=== PATIENT | male | born 1970 | race Caucasian/White ===

== ENCOUNTER 2021-03-29 22:35 | Observation (INO) | payer MEDICAID, OTHER ==
[2021-03-29] MEDS ORDERED: Sodium Chloride 0.9% 10 ML Syringe FLUSH PRN (23:26)
[2021-03-29] MEDS: Sodium Chloride 0.9% 2,000 ML IV ONE (23:29)
--- NOTE | 2021-03-29 23:32 | EDM.PDOC ---
ED HPI GENERAL MEDICAL PROBLEM - General Stated Complaint: WEAKNESS, COVID POSITIVE Time Seen by Provider: 03/29/21 23:19 Source of Information: Reports: Patient History Limitations: Reports: No Limitations - History of Present Illness INITIAL COMMENTS - FREE TEXT/NARRATIVE: Patient presents emergency room by private vehicle for chief complaint of weakness. The patient has had COVID-19 diagnosed on SundayMar.25, cold symptoms started on March 17. This is day 12 for him. He has not been able to eat or drink much due to his weakness and fatigue and lack of appetite. The patient feels short of breath and if he walks down the hallway, he becomes very weak and short of breath. He relates his shortness of breath due to his weakness. Denies any chest pain or chest tightness. He has a cough on and off but is nonproductive. He has no vomiting or diarrhea or any fever or chills. Patient is 50 healthy otherwise does not take any medications, no known medical problems ,does not smoke ,or drink alcohol ,has had no hx of surgeries. - Related Data Allergies Allergy/AdvReac Type Severity Reaction Status Date / Time No Known Allergies Allergy Verified 03/29/21 23:24 Home Meds: Home Meds . [No Known Home Meds] 03/29/21 [History] ED ROS GENERAL - Review of Systems Review Of Systems: See Below Constitutional: Reports: Weakness, Fatigue. Denies: Fever, Chills HEENT: Reports: No Symptoms Respiratory: Reports: Shortness of Breath, Cough. Denies: Pleuritic Chest Pain Cardiovascular: Reports: No Symptoms Endocrine: Reports: Fatigue GI/Abdominal: Reports: No Symptoms. Denies: Abdominal Pain, Nausea, Vomiting Musculoskeletal: Reports: No Symptoms Skin: Reports: No Symptoms Neurological: Reports: No Symptoms. Denies: Headache ED EXAM, GENERAL - Physical Exam Exam: See Below Exam Limited By: No Limitations General Appearance: Alert, Moderate Distress Eye Exam: Bilateral Eye: EOMI Ear Exam: Bilateral Ear: TM normal Nose: Normal Inspection Throat/Mouth: Normal Inspection, Normal Oropharynx, Other (dry lips, dry mucus membranes) Head: Atraumatic Neck: Normal Inspection, Supple, Non-Tender Respiratory/Chest: Chest Non-Tender, Crackles, Other (increased work of breathing, fine crackles in the bases). No: Rales, Rhonchi, Wheezing, Stridor, Retractions Cardiovascular: Normal Peripheral Pulses, Regular Rate, Rhythm, No Murmur Peripheral Pulses: 2+: Radial (L), Radial (R) GI/Abdominal: Normal Bowel Sounds, Soft, Non-Tender Back Exam: Normal Inspection, Full Range of Motion Extremities: Normal Inspection, Normal Range of Motion, Non-Tender, No Pedal Edema Neurological: Alert, Oriented, Normal Cognition Psychiatric: Anxious Skin Exam: Warm, Dry, Intact #1 Interpretation EKG Date: 03/29/21 Time: 23:38 Rhythm: NSR [place]: Normal P-Wave: Present QRS: Normal ST-T: Normal QT: Normal Course - Vital Signs Last Recorded V/S: Last Vital Signs Temp 98.9 F 03/30/21 07:04 Pulse 98 03/30/21 07:04 Resp 28 H 03/30/21 07:04 BP 92/55 L 03/30/21 07:04 Pulse Ox 95 03/30/21 07:04 - Orders/Labs/Meds Orders: Active Orders 24 hr Category Date Time Status Chest 1V Frontal [CR] Stat Exams 03/29/21 23:19 Ordered Chest PE [Ang Chest] [CT] Stat Exams 03/30/21 00:37 Ordered Sodium Chloride 0.9% [Normal Saline] 100 ml Med 03/30/21 01:00 Active IV ASDIRECTED Sodium Chloride 0.9% [Saline Flush] Med 03/29/21 23:26 Active 10 ml FLUSH Q8HR PRN Saline Lock Insert [OM.PC] Routine Oth 03/29/21 23:26 Ordered EKG 12 Lead [EK] Stat Ther 03/29/21 23:26 Ordered Medication Orders Sodium Chloride (Normal Saline) 100 mls @ 200 mls/hr IV ASDIRECTED [facility] Last Admin: 03/30/21 01:20 Dose: 200 mls/hr Documented by: CANDELARIA Sodium Chloride (Sodium Chloride 0.9% 10 Ml Syringe) 10 ml FLUSH Q8HR PRN PRN Reason: keep vein open Labs: Laboratory Tests 03/29/21 03/29/21 03/29/21 Range/Units 23:10 23:10 23:10 WBC 3.90 L (5.00-10.00) 10^3/uL RBC 6.16 H (4.50-6.00) 10^6/uL Hgb 16.4 (13.0-17.0) g/dL Hct 48.3 (40.0-52.0) % MCV 78.4 L (82.0-92.0) fL MCH 26.6 L (27.0-31.0) pg MCHC 34.0 (32.0-36.0) g/dL RDW 13.8 (11.5-14.5) % Plt Count 142 L (150-400) 10^3/uL MPV 11.8 H (7.4-10.4) fL Immature Gran % (Auto) 0.0 (0.0-5.0) % Neut % (Auto) 76.1 H (50.0-70.0) % Lymph % (Auto) 17.4 L (20.0-40.0) % [place] % (Auto) 6.2 (2.0-8.0) % Eos % (Auto) 0.0 L (1.0-3.0) % Baso % (Auto) 0.3 (0.0-1.0) % Neut # (Auto) 2.97 (2.50-7.00) 10^3/uL Lymph # (Auto) 0.68 L (1.00-4.00) 10^3/uL [place] # (Auto) 0.24 (0.10-0.80) 10^3/uL Eos # (Auto) 0.00 L (0.10-0.30) 10^3/uL Baso # (Auto) 0.01 (0.00-0.10) 10^3/uL Immature Gran # (Auto) 0.00 (0.00-0.50) 10^3/uL D-Dimer, Quantitative 902 H (<400) ng/mL Sodium 135 L (136-145) mmol/L Potassium 3.9 (3.5-5.1) mmol/L Chloride 99 (98-107) mmol/L Carbon Dioxide 24.6 (21.0-32.0) mmol/L Anion Gap 15.3 H (5-15) mmol/L BUN 25 H (7-18) mg/dL Creatinine 1.26 H (0.51-1.17) mg/dL Est Cr Clr Drug Dosing 73.87 mL/min Estimated GFR (MDRD) > 60 mL/min Glucose 99 (70-140) mg/dL Lactic Acid (0.4-2.0) mmol/L Calcium 8.3 L (8.7-10.3) mg/dL Total Bilirubin 0.9 (0.2-1.0) mg/dL AST 65 H (15-37) U/L ALT 69 H (14-63) U/L Alkaline Phosphatase 54 (46-116) U/L Troponin I High Sens 5.200 (0-76.000) pg/mL C-Reactive Protein 8.9 H (0.0-0.9) mg/dL Total Protein 7.6 (6.4-8.2) g/dL Albumin 3.28 L (3.40-5.00) g/dL 03/29/21 Range/Units 23:51 WBC (5.00-10.00) 10^3/uL RBC (4.50-6.00) 10^6/uL Hgb (13.0-17.0) g/dL Hct (40.0-52.0) % MCV (82.0-92.0) fL MCH (27.0-31.0) pg MCHC (32.0-36.0) g/dL RDW (11.5-14.5) % Plt Count (150-400) 10^3/uL MPV (7.4-10.4) fL Immature Gran % (Auto) (0.0-5.0) % Neut % (Auto) (50.0-70.0) % Lymph % (Auto) (20.0-40.0) % [place] % (Auto) (2.0-8.0) % Eos % (Auto) (1.0-3.0) % Baso % (Auto) (0.0-1.0) % Neut # (Auto) (2.50-7.00) 10^3/uL Lymph # (Auto) (1.00-4.00) 10^3/uL [place] # (Auto) (0.10-0.80) 10^3/uL Eos # (Auto) (0.10-0.30) 10^3/uL Baso # (Auto) (0.00-0.10) 10^3/uL Immature Gran # (Auto) (0.00-0.50) 10^3/uL D-Dimer, Quantitative (<400) ng/mL Sodium (136-145) mmol/L Potassium (3.5-5.1) mmol/L Chloride (98-107) mmol/L Carbon Dioxide (21.0-32.0) mmol/L Anion Gap (5-15) mmol/L BUN (7-18) mg/dL Creatinine (0.51-1.17) mg/dL Est Cr Clr Drug Dosing mL/min Estimated GFR (MDRD) mL/min Glucose (70-140) mg/dL Lactic Acid 1.9 (0.4-2.0) mmol/L Calcium (8.7-10.3) mg/dL Total Bilirubin (0.2-1.0) mg/dL AST (15-37) U/L ALT (14-63) U/L Alkaline Phosphatase (46-116) U/L Troponin I High Sens (0-76.000) pg/mL C-Reactive Protein (0.0-0.9) mg/dL Total Protein (6.4-8.2) g/dL Albumin (3.40-5.00) g/dL Meds: Medications Generic Name Dose Route Start Last Admin Trade Name Freq PRN Reason Stop Dose Admin Sodium Chloride 100 mls @ 200 mls/hr 03/30/21 01:00 03/30/21 01:20 Normal Saline IV 200 mls/hr ASDIRECTED [place] Administration Sodium Chloride 10 ml 03/29/21 23:26 Sodium Chloride 0.9% 10 Ml Syringe FLUSH Q8HR PRN keep vein open Discontinued Medications Generic Name Dose Route Start Last Admin Trade Name Freq PRN Reason Stop Dose Admin Dexamethasone 6 mg 03/30/21 04:55 03/30/21 04:55 Dexamethasone 4 Mg/Ml Sdv IVPUSH 03/30/21 04:56 6 mg ONETIME ONE Administration Sodium Chloride 2,000 mls @ 999 mls/hr 03/29/21 23:20 03/30/21 01:00 Normal Saline IV 03/30/21 01:20 999 mls/hr .BOLUS ONE Administration Iopamidol 75 ml 03/30/21 00:52 03/30/21 01:20 Iopamidol 755 Mg/Ml 75 Ml Bottle IVPUSH 03/30/21 00:53 75 ml ONETIME ONE Administration Prednisone 40 mg 03/30/21 01:09 03/30/21 07:57 Prednisone 20 Mg Tab PO 03/30/21 01:10 Not Given ONETIME ONE - Re-Assessments/Exams Free Text/Narrative Re-Assessment/Exam: 03/29/21 23:33 IV fluids given patient sats are 95-96% on room air pulse 91 blood pressure 126/76. Patient's respiratory rate is 35-40 respirations per minute. Chest x- ray does revealed hazy bilateral peripheral airspace opacities greater than right suggesting underlying infiltrates consistent with Covid pneumonia. 03/30/21 00:58 CBC reveals a viral illness CRP is elevated consistent with pneumonia.Troponin negative lactic acid negative. Slight elevation of his creatinine 1.26 likely pre renal, patient is on his third liter fluid start to feel better. He has not voided yet, he is drinking p.o. fluids. Due to shortness of breath, weakness ,COVID-19 D-dimer was drawn and [address] PE ordered to rule out pulmonary embolism. his respirations in the ER are 34 his oxygen saturations are 96 to 98% on room air his heart rates been 95 no tachycardia. His blood pressures been in the 120s over 70s throughout entire visit. The patient has had no hypoxia. I did go outside and visit with the and gave her full report updated plan of care per the patient's request. Aman is on day 12, no comorbidities he has got some pneumonia per the x-ray. Due to his lab work his symptoms going to give him Decadron 6 mg p.o. daily for 6 days. Close follow-up with his PCP or return emergency room for further evaluation management low threshold returning. His can also order picker/assembler an SPO2 monitor to monitor his oxygen saturations. He does not meet hospitalization criteria to be admitted At this time. he has no hypoxia he is doing overall quite well feeling better after the third bag of fluid. He is got some abnormal labs however very common with Covid pneumonia. 03/30/21 01:03 Patient got back from CT scan he had to go to the bathroom to void. The patient was unhooked from the telemetry walk to the bathroom voided 300 mils of dark yellow urine. Patient got very short of breath when he went to the bathroom when he got back hooked up to the SPO2 monitor and he was 86 to 87% on room air. Patient was very short of breath he was placed on 2 L of oxygen oxygen saturations now 92 to 93% with 2 L of oxygen. Up to this point the patient has not been hypoxic however the patient has not had to do any activity besides laying in the bed. Heart rate went to 105 his respirations were 40s. Blood pressure is 125/65. Waiting on CT report. Patient did become hypoxic with activity likely he is doing the same at home throughout the past few days as when he does any activity such as order picker/assembler a little laundry or try to make himself some food he becomes very weak and short of breath. 03/30/21 01:33 Patient was placed back on room air at rest his sats are 92-94% however with any activity drops between 87-88% on room air with any activity and became tachy in the 110. I had the nurse walked the patient around his bed a few steps while staying in the room with a continuous SPO2 monitor patient dropped to 87-88% on room air. Patient placed back on 2 L of oxygen his oxygen saturations go back to 92%, she then added to a total of 3 L to maintain sp o2 >94%. Waiting on CT report once the final report is back , thenI will call on-call Midnight provider for consult and admission. Departure - Departure Time of Disposition: 04:30 Disposition: Refer to Observation Condition: Good Clinical Impression: Pneumonia due to COVID-19 virus, Weakness - Discharge Information *PRESCRIPTION DRUG MONITORING PROGRAM REVIEWED*: No *COPY OF PRESCRIPTION DRUG MONITORING REPORT IN PATIENT ROYCE: No Sepsis Event Note (ED) - Focused Exam Vital Signs: Vital Signs Temp Pulse Resp BP Pulse Ox 03/30/21 00:50 97.8 F 98 31 H 123/75 96 03/30/21 00:30 97 32 H 131/81 95 03/30/21 00:14 94 34 H 131/73 97 03/29/21 23:45 93 35 H 137/73 96 03/29/21 23:31 92 32 H 126/76 96 03/29/21 23:25 98.0 F 94 34 H 134/75 91 L 03/29/21 23:15 90 38 H 121/73 03/29/21 23:00 93 33 H 135/79 96 03/29/21 22:46 93 35 H 134/75 94 L - My Orders Last 24 Hours: My Active Orders 03/29/21 23:19 Chest 1V Frontal [CR] Stat 03/29/21 23:26 Sodium Chloride 0.9% [Saline Flush] 10 ml FLUSH Q8HR PRN Saline Lock Insert [OM.PC] Routine EKG 12 Lead [EK] Stat 03/30/21 00:37 Chest PE [Ang Chest] [CT] Stat 03/30/21 01:00 Sodium Chloride 0.9% [Normal Saline] 100 ml IV ASDIRECTED - Assessment/Plan Last 24 Hours: My Active Orders 03/29/21 23:19 Chest 1V Frontal [CR] Stat 03/29/21 23:26 Sodium Chloride 0.9% [Saline Flush] 10 ml FLUSH Q8HR PRN Saline Lock Insert [OM.PC] Routine EKG 12 Lead [EK] Stat 03/30/21 00:37 Chest PE [Ang Chest] [CT] Stat 03/30/21 01:00 Sodium Chloride 0.9% [Normal Saline] 100 ml IV ASDIRECTED
[2021-03-30 00:18] LABS: ANION GAP 15.3 mmol/L (5-15); CHLORIDE,CL 99 mmol/L (98-107); SODIUM,NA 135 mmol/L (136-145)
[2021-03-30] MEDS: Sodium Chloride 0.9% 2,000 ML IV ONE ×2 (00:34→01:00)
[2021-03-30] MEDS ORDERED: Iopamidol 755 Mg/ML 75 ML Bottle IVPUSH ONE (00:52)
[2021-03-30] MEDS ORDERED: Sodium Chloride 0.9% 100 ML IV SCH (01:00)
[2021-03-30] MEDS ORDERED: predniSONE 20 MG Tab PO ONE (01:09)
[2021-03-30] MEDS ORDERED: Dexamethasone 4 MG/ML SDV IVPUSH ONE (04:55)
[2021-03-30] MEDS ORDERED: Dexamethasone 10 MG/ML SDV IVPUSH ONE (04:55)
--- NOTE | 2021-03-30 08:36 | CR ---
[id number] RAD/RAD Chest Portable EXAM: RAD Chest Portable INDICATION: SHORT OF BREATH/COVID 19/WEAKNESS COMPARISON: None. DISCUSSION/IMPRESSION: Cardiomediastinal silhouette is normal in size and contour. Patchy areas of parenchymal opacification throughout both lungs. Findings are consistent with pneumonia, including sequela of COVID 19. Bertrand Bobo MD 03/30/21 0834 Thank you for allowing us to participate in the care of your patient.
[2021-03-30] MEDS: Sodium Chloride 0.9% 1,000 ML IV SCH ×2 (11:04→21:15)
[2021-03-30 11:43] LABS: ANION GAP 12.6 mmol/L (5-15); CHLORIDE,CL 106 mmol/L (98-107); SODIUM,NA 136 mmol/L (136-145)
[2021-03-30] MEDS ORDERED: Ascorbic Acid 500 MG Tab PO ONE (15:57)
[2021-03-30] MEDS: Zinc (Zinc Gluconate) 50 MG Tab PO SCH (16:55)
[2021-03-30] MEDS: Cholecalciferol (Vitamin D3) 25 MCG Tab PO SCH (16:55)
--- NOTE | 2021-03-30 19:16 | PCM.HP.2 ---
H&P History of Present Illness - General Date of Service: 03/30/21 Admit Problem/Dx: Admission Diagnosis/Problem Admission Diagnosis/Problem Pneumonia - Related Data Allergies/Adverse Reactions: Allergies Allergy/AdvReac Type Severity Reaction Status Date / Time No Known Allergies Allergy Verified 03/29/21 23:24 Home Medications: Home Meds . [No Known Home Meds] 03/29/21 [History] Past Medical History HEENT History: Reports: Impaired Vision Dermatologic History: Reports: Other (See Below) Other Dermatologic History: Lichen Plase - Past Surgical History HEENT Surgical History: Reports: None Social & Family History - Tobacco Use Tobacco Use Status *Q: Never Tobacco User Second Hand Smoke Exposure: No - Caffeine Use Caffeine Use: Reports: Coffee - Recreational Drug Use Recreational Drug Use: No H&P Review of Systems - Review of Systems: Review Of Systems: See Below General: Reports: Weakness, Fatigue, Decreased Appetite. Denies: Fever, Chills HEENT: Reports: Headaches, Post Nasal Drip, Sinus Congestion. Denies: Sore Throat Pulmonary: Reports: Shortness of Breath, Cough. Denies: Wheezing Cardiovascular: Reports: Dyspnea on Exertion. Denies: Chest Pain, Palpitations Gastrointestinal: Reports: No Symptoms Genitourinary: Reports: No Symptoms Musculoskeletal: Reports: No Symptoms Skin: Reports: No Symptoms Psychiatric: Reports: No Symptoms Neurological: Reports: No Symptoms Hematologic/Lymphatic: Reports: No Symptoms Immunologic: Reports: No Symptoms Exam - Exam Exam: See Below - Vital Signs Vital Signs: Last Vital Signs Temp 96.4 F L 03/30/21 17:00 Pulse 76 03/30/21 17:00 Resp 24 H 03/30/21 17:00 BP 138/72 03/30/21 17:00 Pulse Ox 93 L 03/30/21 17:00 Weight: 219 lb 5 oz - Exam Quality Assessment: Supplemental Oxygen. No: Urinary Catheter General: Alert, Oriented, Cooperative. No: Mild Distress HEENT: Conjunctiva Clear, Mucosa Moist & [place], Pupils Equal, Pupils Reactive Neck: Supple, Trachea Midline Lungs: Decreased Breath Sounds, Rales (fine to bases). No: Rhonchi, Wheezing Cardiovascular: Regular Rate, Regular Rhythm. No: Systolic Murmur GI/Abdominal Exam: Normal Bowel Sounds, Soft, Non-Tender, No Distention (Male) Exam: Deferred Rectal (Males) Exam: Deferred Back Exam: Normal Inspection, Full Range of Motion Extremities: Normal Inspection, Normal Range of Motion, Non-Tender, No Pedal Edema, Normal Capillary Refill Peripheral Pulses: 2+: Dorsalis Pedis (L), Dorsalis Pedis (R) Skin: Warm, Intact Neurological: Strength Equal Bilateral, Normal Speech Neuro Extensive - Mental Status: Alert, Oriented x3, Normal Mood/Affect Psychiatric: Alert, Normal Affect, Normal Mood - Patient Data Lab Results Last 24 hrs: Laboratory Results - last 24 hr 03/29/21 03/29/21 03/29/21 Range/Units 23:10 23:10 23:10 WBC 3.90 L (5.00-10.00) 10^3/uL RBC 6.16 H (4.50-6.00) 10^6/uL Hgb 16.4 (13.0-17.0) g/dL Hct 48.3 (40.0-52.0) % MCV 78.4 L (82.0-92.0) fL MCH 26.6 L (27.0-31.0) pg MCHC 34.0 (32.0-36.0) g/dL RDW 13.8 (11.5-14.5) % Plt Count 142 L (150-400) 10^3/uL MPV 11.8 H (7.4-10.4) fL Immature Gran % (Auto) 0.0 (0.0-5.0) % Neut % (Auto) 76.1 H (50.0-70.0) % Lymph % (Auto) 17.4 L (20.0-40.0) % [place] % (Auto) 6.2 (2.0-8.0) % Eos % (Auto) 0.0 L (1.0-3.0) % Baso % (Auto) 0.3 (0.0-1.0) % Neut # (Auto) 2.97 (2.50-7.00) 10^3/uL Lymph # (Auto) 0.68 L (1.00-4.00) 10^3/uL [place] # (Auto) 0.24 (0.10-0.80) 10^3/uL Eos # (Auto) 0.00 L (0.10-0.30) 10^3/uL Baso # (Auto) 0.01 (0.00-0.10) 10^3/uL Immature Gran # (Auto) 0.00 (0.00-0.50) 10^3/uL D-Dimer, Quantitative 902 H (<400) ng/mL Sodium 135 L (136-145) mmol/L Potassium 3.9 (3.5-5.1) mmol/L Chloride 99 (98-107) mmol/L Carbon Dioxide 24.6 (21.0-32.0) mmol/L Anion Gap 15.3 H (5-15) mmol/L BUN 25 H (7-18) mg/dL Creatinine 1.26 H (0.51-1.17) mg/dL Est Cr Clr Drug Dosing 73.87 mL/min Estimated GFR (MDRD) > 60 mL/min Glucose 99 (70-140) mg/dL Lactic Acid (0.4-2.0) mmol/L Calcium 8.3 L (8.7-10.3) mg/dL Total Bilirubin 0.9 (0.2-1.0) mg/dL AST 65 H (15-37) U/L ALT 69 H (14-63) U/L Alkaline Phosphatase 54 (46-116) U/L Troponin I High Sens 5.200 (0-76.000) pg/mL C-Reactive Protein 8.9 H (0.0-0.9) mg/dL Total Protein 7.6 (6.4-8.2) g/dL Albumin 3.28 L (3.40-5.00) g/dL 03/29/21 03/30/21 03/30/21 Range/Units 23:51 10:00 10:00 WBC 3.52 L (5.00-10.00) 10^3/uL RBC 5.41 (4.50-6.00) 10^6/uL Hgb 14.2 D (13.0-17.0) g/dL Hct 43.4 (40.0-52.0) % MCV 80.2 L (82.0-92.0) fL MCH 26.2 L (27.0-31.0) pg MCHC 32.7 (32.0-36.0) g/dL RDW 14.1 (11.5-14.5) % Plt Count 133 L (150-400) 10^3/uL MPV 11.6 H (7.4-10.4) fL Immature Gran % (Auto) 0.3 (0.0-5.0) % Neut % (Auto) 82.9 H (50.0-70.0) % Lymph % (Auto) 12.2 L (20.0-40.0) % [place] % (Auto) 4.3 (2.0-8.0) % Eos % (Auto) 0.0 L (1.0-3.0) % Baso % (Auto) 0.3 (0.0-1.0) % Neut # (Auto) 2.92 (2.50-7.00) 10^3/uL Lymph # (Auto) 0.43 L (1.00-4.00) 10^3/uL [place] # (Auto) 0.15 (0.10-0.80) 10^3/uL Eos # (Auto) 0.00 L (0.10-0.30) 10^3/uL Baso # (Auto) 0.01 (0.00-0.10) 10^3/uL Immature Gran # (Auto) 0.01 (0.00-0.50) 10^3/uL D-Dimer, Quantitative (<400) ng/mL Sodium 136 (136-145) mmol/L Potassium 4.0 (3.5-5.1) mmol/L Chloride 106 (98-107) mmol/L Carbon Dioxide 21.4 (21.0-32.0) mmol/L Anion Gap 12.6 (5-15) mmol/L BUN 22 H (7-18) mg/dL Creatinine 1.03 (0.51-1.17) mg/dL Est Cr Clr Drug Dosing 90.37 mL/min Estimated GFR (MDRD) > 60 mL/min Glucose 175 H (70-140) mg/dL Lactic Acid 1.9 (0.4-2.0) mmol/L Calcium 7.6 L (8.7-10.3) mg/dL Total Bilirubin 0.7 (0.2-1.0) mg/dL AST 72 H (15-37) U/L ALT 72 H (14-63) U/L Alkaline Phosphatase 51 (46-116) U/L Troponin I High Sens (0-76.000) pg/mL C-Reactive Protein (0.0-0.9) mg/dL Total Protein 6.0 L (6.4-8.2) g/dL Albumin 2.85 L (3.40-5.00) g/dL Result Diagrams: 03/30/21 10:00 03/30/21 10:00 Sepsis Event Note - Evaluation Sepsis Screening Result: No Definite Risk - Focused Exam Vital Signs: Vital Signs Temp Pulse Resp BP Pulse Ox Pulse Ox 03/30/21 17:00 96.4 F L 76 24 H 138/72 93 L 03/30/21 11:00 96.5 F L 82 18 119/73 95 03/30/21 10:15 93 L 03/30/21 09:37 94 L Problem List Initiated/Reviewed/Updated: Yes Orders Last 24hrs: Active Orders 24 hr Category Date Time Status Patient Status [ADT] Routine ADT 03/30/21 03:55 Active Cardiac Monitoring [RC] 03,07,11,,,23 Care 03/30/21 09:37 Active Intake and Output [RC] 0600,1400,2200 Care 03/30/21 09:37 Active Oxygen Therapy [RC] PRN Care 03/30/21 10:15 Active Up With Assistance [RC] ASDIRECTED Care 03/30/21 09:36 Active VTE/DVT Education [RC] Care 03/30/21 10:15 Active Vital Signs [RC] 0300,0700,1100,1500,1900,2300 Care 03/30/21 10:15 Active Regular Diet [DIET] Diet 03/30/21 Lunch Active Chest PE [Ang Chest] [CT] Stat Exams 03/30/21 00:37 Taken C-REACTIVE PROTEIN [CHEM] AM Lab 03/31/21 05:11 Ordered CBC WITH AUTO DIFF [HEME] AM Lab 03/31/21 05:11 Ordered COMPREHENSIVE METABOLIC PN,CMP [CHEM] AM Lab 03/31/21 05:11 Ordered Ascorbic Acid [Vitamin C] Med 03/30/21 21:00 Active 1,000 mg PO BID Cholecalciferol (Vitamin D3) [Vitamin D3] Med 03/30/21 15:45 Active 25 mcg PO DAILY Sodium Chloride 0.9% [Normal Saline] 1,000 ml Med 03/30/21 09:45 Active IV ASDIRECTED Sodium Chloride 0.9% [Normal Saline] 100 ml Med 03/30/21 01:00 Active IV ASDIRECTED Sodium Chloride 0.9% [Saline Flush] Med 03/29/21 23:26 Active 10 ml FLUSH Q8HR PRN Zinc Gluconate [Zinc] Med 03/30/21 15:45 Active 50 mg PO DAILY dexAMETHasone [Decadron] Med 03/31/21 09:00 Active 6 mg IVPUSH DAILY Saline Lock Insert [OM.PC] Routine Oth 03/29/21 23:26 Ordered Resuscitation Status Routine Resus Stat 03/30/21 10:15 Ordered EKG 12 Lead [EK] Stat Ther 03/29/21 23:26 Ordered Medication Orders Ascorbic Acid (Ascorbic Acid 500 Mg Tab) 1,000 mg PO BID [facility] Cholecalciferol (Cholecalciferol (Vitamin D3) 25 Mcg Tab) 25 mcg PO DAILY [facility] Last Admin: 03/30/21 16:55 Dose: 25 mcg Documented by: GAMALIEL Dexamethasone (Dexamethasone 10 Mg/Ml Sdv) 6 mg IVPUSH DAILY [facility] Sodium Chloride (Normal Saline) 100 mls @ 200 mls/hr IV ASDIRECTED [facility] Last Admin: 03/30/21 01:20 Dose: 200 mls/hr Documented by: CANDELARIA Sodium Chloride (Normal Saline) 1,000 mls @ 100 mls/hr IV ASDIRECTED [facility] Last Admin: 03/30/21 11:04 Dose: 100 mls/hr Documented by: GAMALIEL Sodium Chloride (Sodium Chloride 0.9% 10 Ml Syringe) 10 ml FLUSH Q8HR PRN PRN Reason: keep vein open Zinc Gluconate (Zinc (Zinc Gluconate) 50 Mg Tab) 50 mg PO DAILY [facility] Last Admin: 03/30/21 16:55 Dose: 50 mg Documented by: GAMALIEL Assessment/Plan Comment:: HPI summary: ED course: Hospital course: Hospitalization problems and plan: # COVID-19 # COVID pneumonia # Hypoxia # Dehydration; improving with IV fluids # Elevated serum creatinine - 1.26 in ED, normalized this morning - - Continue dexamethasone 6mg IV tomorrow, will continue up to 10 day course PO upon discharge - Supplemental oxygen by NC to maintain O2 sat > 90% - Incentive spirometry 10x per hour while awake - Adjunct therapies of vitamin C, vitamin D and zinc started today Chronic, stable conditions: # Hospitalization details: # FEN: NS @ 100ml/hr, electrolytes stable, regular diet # PPX: None. # Code status: FULL CODE # Emergency contact: # Disposition: Patient to remain on observation status with possible discharge home tomorrow depending on clinical course. Labs overall improving, minimal supplemental oxygen requirements.
[2021-03-30] MEDS: Ascorbic Acid 500 MG Tab PO SCH (20:54)
[2021-03-30] MEDS ORDERED: Menthol 7.6 MG Sugar Free Lozenge PO PRN (22:06)
[2021-03-31] MEDS ORDERED: Dexamethasone 4 MG/ML SDV IVPUSH SCH (06:00)
[2021-03-31 07:46] LABS: ANION GAP 13.2 mmol/L (5-15); CHLORIDE,CL 108 mmol/L (98-107); SODIUM,NA 139 mmol/L (136-145)
[2021-03-31] MEDS: Sodium Chloride 0.9% 1,000 ML IV SCH (07:56)
[2021-03-31] MEDS: Ascorbic Acid 500 MG Tab PO SCH (08:20)
[2021-03-31] MEDS: Cholecalciferol (Vitamin D3) 25 MCG Tab PO SCH (08:21)
[2021-03-31] MEDS: Zinc (Zinc Gluconate) 50 MG Tab PO SCH (08:21)
[2021-03-31] MEDS ORDERED: Dexamethasone 10 MG/ML SDV IVPUSH SCH (09:00)
--- NOTE | 2021-03-31 11:31 | PCM.PN ---
- General Info Date of Service: 03/31/21 Functional Status: Reports: Pain Controlled, Tolerating Diet, Urinating, New Symptoms (difficulty sleeping, sweating at night), Incentive Spirometry (1000ml) - Review of Systems General: Reports: Malaise, Night Sweats, Appetite (improved), Other (insomnia). Denies: Fever, Chills HEENT: Reports: No Symptoms Pulmonary: Reports: Cough (dry). Denies: Shortness of Breath, Wheezing Cardiovascular: Reports: No Symptoms Gastrointestinal: Reports: No Symptoms Genitourinary: Reports: No Symptoms Musculoskeletal: Reports: No Symptoms Skin: Reports: No Symptoms Neurological: Reports: No Symptoms Psychiatric: Reports: No Symptoms - Patient Data Vitals - Most Recent: Last Vital Signs Temp 97.2 F 03/31/21 11:00 Pulse 81 03/31/21 11:00 Resp 22 H 03/31/21 11:00 BP 122/74 03/31/21 11:00 Pulse Ox 93 L 03/31/21 11:00 Weight - Most Recent: 219 lb 5 oz I&O - Last 24 Hours: Intake & Output 03/30/21 03/31/21 03/31/21 22:59 06:59 14:59 Intake Total 200 150 Balance 200 150 Lab Results Last 24 Hours: Laboratory Results - last 24 hr 03/30/21 03/31/21 03/31/21 Range/Units 10:00 07:15 07:15 WBC 6.31 (5.00-10.00) 10^3/uL RBC 5.11 (4.50-6.00) 10^6/uL Hgb 13.5 (13.0-17.0) g/dL Hct 40.6 (40.0-52.0) % MCV 79.5 L (82.0-92.0) fL MCH 26.4 L (27.0-31.0) pg MCHC 33.3 (32.0-36.0) g/dL RDW 13.9 (11.5-14.5) % Plt Count 146 L (150-400) 10^3/uL MPV 12.0 H (7.4-10.4) fL Immature Gran % (Auto) 0.2 (0.0-5.0) % Neut % (Auto) 85.5 H (50.0-70.0) % Lymph % (Auto) 7.9 L (20.0-40.0) % [place] % (Auto) 6.2 (2.0-8.0) % Eos % (Auto) 0.0 L (1.0-3.0) % Baso % (Auto) 0.2 (0.0-1.0) % Neut # (Auto) 5.40 (2.50-7.00) 10^3/uL Lymph # (Auto) 0.50 L (1.00-4.00) 10^3/uL [place] # (Auto) 0.39 (0.10-0.80) 10^3/uL Eos # (Auto) 0.00 L (0.10-0.30) 10^3/uL Baso # (Auto) 0.01 (0.00-0.10) 10^3/uL Immature Gran # (Auto) 0.01 (0.00-0.50) 10^3/uL Sodium 136 139 (136-145) mmol/L Potassium 4.0 3.9 (3.5-5.1) mmol/L Chloride 106 108 H (98-107) mmol/L Carbon Dioxide 21.4 21.7 (21.0-32.0) mmol/L Anion Gap 12.6 13.2 (5-15) mmol/L BUN 22 H 18 (7-18) mg/dL Creatinine 1.03 0.82 (0.51-1.17) mg/dL Est Cr Clr Drug Dosing 90.37 113.51 mL/min Estimated GFR (MDRD) > 60 > 60 mL/min Glucose 175 H 128 (70-140) mg/dL Calcium 7.6 L 7.3 L (8.7-10.3) mg/dL Total Bilirubin 0.7 0.4 (0.2-1.0) mg/dL AST 72 H 48 H (15-37) U/L ALT 72 H 59 (14-63) U/L Alkaline Phosphatase 51 43 L (46-116) U/L C-Reactive Protein 3.8 H (0.0-0.9) mg/dL Total Protein 6.0 L 6.0 L (6.4-8.2) g/dL Albumin 2.85 L 2.40 L (3.40-5.00) g/dL Med Orders - Current: Current Medications Ascorbic Acid (Ascorbic Acid 500 Mg Tab) 1,000 mg PO BID [facility] Last Admin: 03/31/21 08:20 Dose: 1,000 mg Documented by: Cholecalciferol (Cholecalciferol (Vitamin D3) 25 Mcg Tab) 25 mcg PO DAILY [facility] Last Admin: 03/31/21 08:21 Dose: 25 mcg Documented by: Dexamethasone (Dexamethasone 10 Mg/Ml Sdv) 6 mg IVPUSH DAILY [facility] Last Admin: 03/31/21 08:21 Dose: 6 mg Documented by: Sodium Chloride (Normal Saline) 100 mls @ 200 mls/hr IV ASDIRECTED [facility] Last Admin: 03/30/21 01:20 Dose: 200 mls/hr Documented by: Sodium Chloride (Normal Saline) 1,000 mls @ 100 mls/hr IV ASDIRECTED [facility] Last Admin: 03/31/21 07:56 Dose: 100 mls/hr Documented by: Menthol (Menthol 7.6 Mg Sugar Free Lozenge) 1 edie PO ASDIRECTED PRN PRN Reason: Cough Last Admin: 03/30/21 22:17 Dose: 1 edie Documented by: Sodium Chloride (Sodium Chloride 0.9% 10 Ml Syringe) 10 ml FLUSH Q8HR PRN PRN Reason: keep vein open Zinc Gluconate (Zinc (Zinc Gluconate) 50 Mg Tab) 50 mg PO DAILY [facility] Last Admin: 03/31/21 08:21 Dose: 50 mg Documented by: Discontinued Medications Ascorbic Acid (Ascorbic Acid 500 Mg Tab) 1,000 mg PO ONETIME ONE Stop: 03/30/21 15:58 Last Admin: 03/30/21 16:55 Dose: 1,000 mg Documented by: Dexamethasone (Dexamethasone 4 Mg/Ml Sdv) 6 mg IVPUSH ONETIME ONE Stop: 03/30/21 04:56 Last Admin: 03/30/21 04:55 Dose: 6 mg Documented by: Sodium Chloride (Normal Saline) 2,000 mls @ 999 mls/hr IV .BOLUS ONE Stop: 03/30/21 01:20 Last Admin: 03/30/21 01:00 Dose: 999 mls/hr Documented by: Iopamidol (Iopamidol 755 Mg/Ml 75 Ml Bottle) 75 ml IVPUSH ONETIME ONE Stop: 03/30/21 00:53 Last Admin: 03/30/21 01:20 Dose: 75 ml Documented by: Prednisone (Prednisone 20 Mg Tab) 40 mg PO ONETIME ONE Stop: 03/30/21 01:10 Last Admin: 03/30/21 07:57 Dose: Not Given Documented by: - Exam Quality Assessment: Supplemental Oxygen General: Alert, Oriented, Cooperative, No Acute Distress HEENT: Pupils Equal, Mucous Membr. Moist/[place] Neck: Supple, Trachea Midline Lungs: Decreased Breath Sounds. No: Crackles, Rhonchi, Wheezing Cardiovascular: Regular Rate, Regular Rhythm, No Murmurs GI/Abdominal Exam: Normal Bowel Sounds, Soft, Non-Tender, No Distention (Male) Exam: Deferred Back Exam: Normal Inspection, Full Range of Motion Extremities: Normal Inspection, Normal Range of Motion, Non-Tender, No Pedal Edema, Normal Capillary Refill Peripheral Pulses: 2+: Dorsalis Pedis (L), Dorsalis Pedis (R) Skin: Warm, Dry, Intact Neurological: No New Focal Deficit Psy/Mental Status: Alert, Normal Affect, Normal Mood - Patient Data Lab Results Last 24 hrs: Laboratory Results - last 24 hr 03/30/21 03/31/21 03/31/21 Range/Units 10:00 07:15 07:15 WBC 6.31 (5.00-10.00) 10^3/uL RBC 5.11 (4.50-6.00) 10^6/uL Hgb 13.5 (13.0-17.0) g/dL Hct 40.6 (40.0-52.0) % MCV 79.5 L (82.0-92.0) fL MCH 26.4 L (27.0-31.0) pg MCHC 33.3 (32.0-36.0) g/dL RDW 13.9 (11.5-14.5) % Plt Count 146 L (150-400) 10^3/uL MPV 12.0 H (7.4-10.4) fL Immature Gran % (Auto) 0.2 (0.0-5.0) % Neut % (Auto) 85.5 H (50.0-70.0) % Lymph % (Auto) 7.9 L (20.0-40.0) % [place] % (Auto) 6.2 (2.0-8.0) % Eos % (Auto) 0.0 L (1.0-3.0) % Baso % (Auto) 0.2 (0.0-1.0) % Neut # (Auto) 5.40 (2.50-7.00) 10^3/uL Lymph # (Auto) 0.50 L (1.00-4.00) 10^3/uL [place] # (Auto) 0.39 (0.10-0.80) 10^3/uL Eos # (Auto) 0.00 L (0.10-0.30) 10^3/uL Baso # (Auto) 0.01 (0.00-0.10) 10^3/uL Immature Gran # (Auto) 0.01 (0.00-0.50) 10^3/uL Sodium 136 139 (136-145) mmol/L Potassium 4.0 3.9 (3.5-5.1) mmol/L Chloride 106 108 H (98-107) mmol/L Carbon Dioxide 21.4 21.7 (21.0-32.0) mmol/L Anion Gap 12.6 13.2 (5-15) mmol/L BUN 22 H 18 (7-18) mg/dL Creatinine 1.03 0.82 (0.51-1.17) mg/dL Est Cr Clr Drug Dosing 90.37 113.51 mL/min Estimated GFR (MDRD) > 60 > 60 mL/min Glucose 175 H 128 (70-140) mg/dL Calcium 7.6 L 7.3 L (8.7-10.3) mg/dL Total Bilirubin 0.7 0.4 (0.2-1.0) mg/dL AST 72 H 48 H (15-37) U/L ALT 72 H 59 (14-63) U/L Alkaline Phosphatase 51 43 L (46-116) U/L C-Reactive Protein 3.8 H (0.0-0.9) mg/dL Total Protein 6.0 L 6.0 L (6.4-8.2) g/dL Albumin 2.85 L 2.40 L (3.40-5.00) g/dL Result Diagrams: 03/31/21 07:15 03/31/21 07:15 Sepsis Event Note - Evaluation Sepsis Screening Result: No Definite Risk - Focused Exam Vital Signs: Vital Signs Temp Pulse Resp BP Pulse Ox 03/31/21 11:00 97.2 F 81 22 H 122/74 93 L 03/31/21 06:26 98.0 F 73 20 110/71 93 L 03/31/21 03:00 98.0 F 72 20 110/68 93 L - My Orders Last 24 Hours: My Active Orders 03/30/21 Lunch Regular Diet [DIET] 03/30/21 15:45 Cholecalciferol (Vitamin D3) [Vitamin D3] 25 mcg PO DAILY Zinc Gluconate [Zinc] 50 mg PO DAILY 03/30/21 21:00 Ascorbic Acid [Vitamin C] 1,000 mg PO BID - Plan Plan:: HPI summary: ED course: Hospital course: 03/30/21: 03/31/21: Patient reports difficulty sleeping last night and night sweats. States his breathing seems ok today. Vitals stable, patient continues to require 2L by nasal cannula. WBC 6.31 (85.5% neutrophils), suspect this is s teroid induced given dexamethasone. Na 139, K 3.9, BUN 18, Creatinine 0.82. AST improved to 48, ALT 59. CRP decreased to 3.8. Lung sound diminished. Hospitalization problems and plan: # COVID-19 # COVID pneumonia # Hypoxia # Dehydration; improving with IV fluids # Elevated serum creatinine - Creatinine 0.82 this morning, GFR > 60. - Plan to stop dexamethasone today given insomnia, night sweats - Supplemental oxygen by NC to maintain O2 sat > 90% - Incentive spirometry 10x per hour while awake - Continue adjunct therapies of vitamin C, vitamin D and zinc started today Chronic, stable conditions: # Hospitalization details: # FEN: NS @ 100ml/hr, electrolytes stable, regular diet # PPX: None. # Code status: FULL CODE # Emergency contact: , Lizzy, # Disposition: Patient to remain on observation status with possible discharge home tomorrow depending on clinical course. Labs continuing to improve, minimal supplemental oxygen requirements. Patient may need short term home oxygen upon discharge home.
--- NOTE | 2021-03-31 13:59 | PCM.DCSUM1 ---
Discharge Summary - Hospital Course Free Text/Narrative:: Date of admission: 03/30/21 Date of discharge: 03/31/21 Admission diagnoses: Discharge diagnoses: Hospital course: Discharge and follow-up recommendations: - Discharge to home per self care with home oxygen - New medications at discharge: None. Continue vitamin C, vitamin D and zinc - Follow-up at [facility] on April 04 at 9:30 with Daphne Ponce APRN, CNP - Discharge Data Discharge Date: 03/31/21 Discharge Disposition: Home, Self-Care 01 Condition: Good - Referral to Home Health Primary Care Physician: PCP None - Patient Instructions Diet: Regular Diet as Tolerated Diet, Other: push fluids - at least 64+ ounces daily - Discharge Plan *PRESCRIPTION DRUG MONITORING PROGRAM REVIEWED*: No *COPY OF PRESCRIPTION DRUG MONITORING REPORT IN PATIENT ROYCE: No Home Medications: Home Meds . [No Known Home Meds] 03/29/21 [History] Oxygen Therapy Mode: Nasal Cannula Referrals: PCP,None [Primary Care Provider] - 04/04/21 9:30 am (Follow-up at [facility] on April 04 with Daphne Ponce APRN, CNP at 9:30) - Discharge Summary/Plan Comment DC Time >30 min.: Yes Total # of Minutes for Discharge Time: 40 - Patient Data Vitals - Most Recent: Last Vital Signs Temp 97.2 F 03/31/21 11:00 Pulse 81 03/31/21 11:00 Resp 22 H 03/31/21 11:00 BP 122/74 03/31/21 11:00 Pulse Ox 93 L 03/31/21 11:00 Weight - Most Recent: 219 lb 5 oz I&O - Last 24 hours: Intake & Output 03/30/21 03/31/21 03/31/21 22:59 06:59 14:59 Intake Total 200 150 500 Balance 200 150 500 Lab Results - Last 24 hrs: Laboratory Results - last 24 hr 03/31/21 03/31/21 Range/Units 07:15 07:15 WBC 6.31 (5.00-10.00) 10^3/uL RBC 5.11 (4.50-6.00) 10^6/uL Hgb 13.5 (13.0-17.0) g/dL Hct 40.6 (40.0-52.0) % MCV 79.5 L (82.0-92.0) fL MCH 26.4 L (27.0-31.0) pg MCHC 33.3 (32.0-36.0) g/dL RDW 13.9 (11.5-14.5) % Plt Count 146 L (150-400) 10^3/uL MPV 12.0 H (7.4-10.4) fL Immature Gran % (Auto) 0.2 (0.0-5.0) % Neut % (Auto) 85.5 H (50.0-70.0) % Lymph % (Auto) 7.9 L (20.0-40.0) % [place] % (Auto) 6.2 (2.0-8.0) % Eos % (Auto) 0.0 L (1.0-3.0) % Baso % (Auto) 0.2 (0.0-1.0) % Neut # (Auto) 5.40 (2.50-7.00) 10^3/uL Lymph # (Auto) 0.50 L (1.00-4.00) 10^3/uL [place] # (Auto) 0.39 (0.10-0.80) 10^3/uL Eos # (Auto) 0.00 L (0.10-0.30) 10^3/uL Baso # (Auto) 0.01 (0.00-0.10) 10^3/uL Immature Gran # (Auto) 0.01 (0.00-0.50) 10^3/uL Sodium 139 (136-145) mmol/L Potassium 3.9 (3.5-5.1) mmol/L Chloride 108 H (98-107) mmol/L Carbon Dioxide 21.7 (21.0-32.0) mmol/L Anion Gap 13.2 (5-15) mmol/L BUN 18 (7-18) mg/dL Creatinine 0.82 (0.51-1.17) mg/dL Est Cr Clr Drug Dosing 113.51 mL/min Estimated GFR (MDRD) > 60 mL/min Glucose 128 (70-140) mg/dL Calcium 7.3 L (8.7-10.3) mg/dL Total Bilirubin 0.4 (0.2-1.0) mg/dL AST 48 H (15-37) U/L ALT 59 (14-63) U/L Alkaline Phosphatase 43 L (46-116) U/L C-Reactive Protein 3.8 H (0.0-0.9) mg/dL Total Protein 6.0 L (6.4-8.2) g/dL Albumin 2.40 L (3.40-5.00) g/dL Med Orders - Current: Current Medications Ascorbic Acid (Ascorbic Acid 500 Mg Tab) 1,000 mg PO BID [facility] Last Admin: 03/31/21 08:20 Dose: 1,000 mg Documented by: Cholecalciferol (Cholecalciferol (Vitamin D3) 25 Mcg Tab) 25 mcg PO DAILY [facility] Last Admin: 03/31/21 08:21 Dose: 25 mcg Documented by: Dexamethasone (Dexamethasone 10 Mg/Ml Sdv) 6 mg IVPUSH DAILY [facility] Last Admin: 03/31/21 08:21 Dose: 6 mg Documented by: Sodium Chloride (Normal Saline) 100 mls @ 200 mls/hr IV ASDIRECTED [facility] Last Admin: 03/30/21 01:20 Dose: 200 mls/hr Documented by: Sodium Chloride (Normal Saline) 1,000 mls @ 100 mls/hr IV ASDIRECTED [facility] Last Admin: 03/31/21 07:56 Dose: 100 mls/hr Documented by: Menthol (Menthol 7.6 Mg Sugar Free Lozenge) 1 edie PO ASDIRECTED PRN PRN Reason: Cough Last Admin: 03/30/21 22:17 Dose: 1 edie Documented by: Sodium Chloride (Sodium Chloride 0.9% 10 Ml Syringe) 10 ml FLUSH Q8HR PRN PRN Reason: keep vein open Zinc Gluconate (Zinc (Zinc Gluconate) 50 Mg Tab) 50 mg PO DAILY [facility] Last Admin: 03/31/21 08:21 Dose: 50 mg Documented by: Discontinued Medications Ascorbic Acid (Ascorbic Acid 500 Mg Tab) 1,000 mg PO ONETIME ONE Stop: 03/30/21 15:58 Last Admin: 03/30/21 16:55 Dose: 1,000 mg Documented by: Dexamethasone (Dexamethasone 4 Mg/Ml Sdv) 6 mg IVPUSH ONETIME ONE Stop: 03/30/21 04:56 Last Admin: 03/30/21 04:55 Dose: 6 mg Documented by: Sodium Chloride (Normal Saline) 2,000 mls @ 999 mls/hr IV .BOLUS ONE Stop: 03/30/21 01:20 Last Admin: 03/30/21 01:00 Dose: 999 mls/hr Documented by: Iopamidol (Iopamidol 755 Mg/Ml 75 Ml Bottle) 75 ml IVPUSH ONETIME ONE Stop: 03/30/21 00:53 Last Admin: 03/30/21 01:20 Dose: 75 ml Documented by: Prednisone (Prednisone 20 Mg Tab) 40 mg PO ONETIME ONE Stop: 03/30/21 01:10 Last Admin: 03/30/21 07:57 Dose: Not Given Documented by:
== END 2021-03-31 16:45 | disposition home or self-care (01) ==
LOC: KA.ED 22:35 → KA.MS 03-30 03:55
PROVIDERS: ADMIT Family Medicine; ATTEND Family Medicine
DX: U07.1 COVID-19 (principal); J12.82 Pneumonia due to coronavirus disease 2019; R09.02 Hypoxemia; E86.0 Dehydration
CPT/HCPCS: 36415; 71045; 71275; 80053; 83605; 84484; 85025; 85379; 86140; 99285; A9270; J1100; J7030; Q9967; 96374; 96376; 99284; G0378

== ENCOUNTER 2021-04-05 11:15 | Emergency (ER) | payer OTHER ==
[2021-04-05] MEDS ORDERED: Sodium Chloride 0.9% 1,000 ML IV ONE (11:38)
[2021-04-05] MEDS ORDERED: Sodium Chloride 0.9% 10 ML Syringe FLUSH PRN (11:38)
[2021-04-05] MEDS ORDERED: Ondansetron 4 MG/2 ML SDV IVPUSH ONE (11:38)
--- NOTE | 2021-04-05 11:39 | EDM.PDOC ---
ED HPI GENERAL MEDICAL PROBLEM - General Chief Complaint: Gastrointestinal Problem Stated Complaint: NAUSEA, VOMITING, DIARRHEA Time Seen by Provider: 04/05/21 11:25 Source of Information: Reports: Patient History Limitations: Reports: No Limitations - History of Present Illness INITIAL COMMENTS - FREE TEXT/NARRATIVE: 50 YO WM PRESENTS TO ER COMPLAINING OF GENERALIZED WEAKNESS WITH PROFUSE DIARRHEA AND NAUSEA WITHOUT VOMITING. PT REPORTS HE WAS DIAGNOSED WITH COVID-19 ON Mar. SINCE THAT TIME HE HAS BEEN HOSPITALIZED HERE AT [facility] FOR SIMILAR COMPLAINTS AND COVID RELATED PNEUMONIA. PT WAS GIVEN DECADRON 6MG IV DAILY AND SUPPLEMENTAL OXYGEN WHICH HE CONTINUED UPON DISCHARGE FROM HOSPITAL. PT REPORTS FOR THE LAST 2 DAYS HE'S HAD PROFUSE DIARRHEA FOR WHICH HE HASN'T TAKEN ANY OTC MEDICATIONS. PT REPORTS HE'S DEHYDRATED AND FEELS TERRIBLE. PT DENIES SHORTNESS OF BREATH TODAY BUT STATES HE HAS MILD LOWER BACK MUSCLE SORENESS WHICH HE STATES BEGAN YESTERDAY AFTER MILD HOUSE CHORES. PT DENIES CHEST PAIN, PRODUCTIVE COUGH OR FEVER/CHILLS. BP-99/65 SAO2-94%RA, P-88. PT STATES HE JUST WANTS TO FEEL BETTER. Onset Date: 03/25/21 Duration: Recurring Location: Reports: Generalized Severity: Moderate Improves with: Reports: Rest Worsens with: Reports: Movement Associated Symptoms: Reports: No Other Symptoms, Cough, Loss of Appetite, Malaise, Nausea/Vomiting, Weakness. Denies: Confusion, Chest Pain, Fever/Chills, Headaches, Shortness of Breath, Syncope Bilateral Middle Back Pain Score (Numeric/FACES): 6 - Related Data Allergies Allergy/AdvReac Type Severity Reaction Status Date / Time No Known Allergies Allergy Verified 04/05/21 13:03 Home Meds: Home Meds traMADol [Ultram] 50 mg PO Q6H PRN #10 tab 04/05/21 [Rx] Past Medical History HEENT History: Reports: Impaired Vision Dermatologic History: Reports: Other (See Below) Other Dermatologic History: Lichen Plase - Past Surgical History HEENT Surgical History: Reports: None Social & Family History - Caffeine Use Caffeine Use: Reports: Coffee ED ROS GENERAL - Review of Systems Review Of Systems: See Below Constitutional: Reports: Malaise, Weakness, Fatigue, Decreased Appetite HEENT: Reports: No Symptoms Respiratory: Reports: No Symptoms Cardiovascular: Reports: No Symptoms Endocrine: Reports: No Symptoms GI/Abdominal: Reports: No Symptoms, Diarrhea, Decreased Appetite, Nausea. Denies: Abdominal Pain, Black Stool, Hematemesis, Hematochezia, Melena, Mucous in Stool, Stool Incontinence, Vomiting : Reports: No Symptoms Musculoskeletal: Reports: No Symptoms Skin: Reports: No Symptoms Neurological: Reports: No Symptoms Psychiatric: Reports: No Symptoms Hematologic/Lymphatic: Reports: No Symptoms Immunologic: Reports: No Symptoms ED EXAM, GENERAL - Physical Exam Exam: See Below Exam Limited By: No Limitations General Appearance: Alert, WD/WN, No Apparent Distress Throat/Mouth: Normal Inspection, Normal Lips, Normal Teeth, Normal Gums, Normal Oropharynx, Normal Voice, No Airway Compromise Head: Atraumatic, Normocephalic Neck: Normal Inspection, Supple, Non-Tender, Full Range of Motion Respiratory/Chest: No Respiratory Distress, Lungs Clear, Normal Breath Sounds, No Accessory Muscle Use, Chest Non-Tender Cardiovascular: Normal Peripheral Pulses, Regular Rate, Rhythm, No Edema, No Gallop, No JVD, No Murmur, No Rub GI/Abdominal: Normal Bowel Sounds, Soft, Non-Tender, No Organomegaly, No Distention, No Abnormal Bruit, No Mass Back Exam: Normal Inspection, Full Range of Motion, NT Extremities: Normal Inspection, Normal Range of Motion, Non-Tender, Normal Capillary Refill, No Pedal Edema Neurological: Alert, Oriented, CN II-XII Intact, Normal Cognition, Normal Gait, No Motor/Sensory Deficits Psychiatric: Normal Affect, Normal Mood Skin Exam: Warm, Dry, Intact, Normal Color, No Rash Lymphatic: No Adenopathy Course - Vital Signs Last Recorded V/S: Last Vital Signs Temp 97.2 F 04/05/21 13:04 Pulse 86 04/05/21 13:15 Resp 26 H 04/05/21 13:15 BP 112/67 04/05/21 13:15 Pulse Ox 95 04/05/21 13:15 - Orders/Labs/Meds Orders: Active Orders 24 hr Category Date Time Status Peripheral IV Care [RC] . DIRECTED Care 04/05/21 11:38 Active Sodium Chloride 0.9% [Saline Flush] Med 04/05/21 11:38 Active 10 ml FLUSH Q8HR PRN Peripheral IV Insertion Adult [OM.PC] Routine Oth 04/05/21 11:38 Ordered Medication Orders Sodium Chloride (Sodium Chloride 0.9% 10 Ml Syringe) 10 ml FLUSH Q8HR PRN PRN Reason: keep vein open Labs: Laboratory Tests 04/05/21 04/05/21 04/05/21 Range/Units 11:30 11:30 12:35 WBC 11.91 H (5.00-10.00) 10^3/uL RBC 5.92 (4.50-6.00) 10^6/uL Hgb 15.4 D (13.0-17.0) g/dL Hct 47.4 (40.0-52.0) % MCV 80.1 L (82.0-92.0) fL MCH 26.0 L (27.0-31.0) pg MCHC 32.5 (32.0-36.0) g/dL RDW 13.7 (11.5-14.5) % Plt Count 344 D (150-400) 10^3/uL MPV 11.5 H (7.4-10.4) fL Immature Gran % (Auto) 0.7 (0.0-5.0) % Neut % (Auto) 79.4 H (50.0-70.0) % Lymph % (Auto) 7.4 L (20.0-40.0) % Cassia % (Auto) 11.5 H (2.0-8.0) % Eos % (Auto) 0.8 L (1.0-3.0) % Baso % (Auto) 0.2 (0.0-1.0) % Neut # (Auto) 9.46 H (2.50-7.00) 10^3/uL Lymph # (Auto) 0.88 L (1.00-4.00) 10^3/uL Cassia # (Auto) 1.37 H (0.10-0.80) 10^3/uL Eos # (Auto) 0.10 (0.10-0.30) 10^3/uL Baso # (Auto) 0.02 (0.00-0.10) 10^3/uL Immature Gran # (Auto) 0.08 (0.00-0.50) 10^3/uL Sodium 138 (136-145) mmol/L Potassium 4.2 (3.5-5.1) mmol/L Chloride 102 (98-107) mmol/L Carbon Dioxide 25.8 (21.0-32.0) mmol/L Anion Gap 14.4 (5-15) mmol/L BUN 15 (7-18) mg/dL Creatinine 0.99 (0.51-1.17) mg/dL Est Cr Clr Drug Dosing 94.02 mL/min Estimated GFR (MDRD) > 60 mL/min Glucose 111 (70-140) mg/dL Lactic Acid 0.5 (0.4-2.0) mmol/L Calcium 8.5 L (8.7-10.3) mg/dL Total Bilirubin 0.8 (0.2-1.0) mg/dL AST 58 H (15-37) U/L ALT 177 H (14-63) U/L Alkaline Phosphatase 55 (46-116) U/L Total Protein 7.5 (6.4-8.2) g/dL Albumin 2.84 L (3.40-5.00) g/dL Lipase 135 (73-393) U/L Specimen Type Urine Color (YELLOW) Urine Appearance (CLEAR) Urine pH (5.0-9.0) Ur Specific [place] (1.005-1.030) Urine Protein (NEGATIVE) mg/dL Urine Glucose (UA) (NEGATIVE) mg/dL Urine Ketones (NEGATIVE) mg/dL Urine Occult Blood (NEGATIVE) Urine Nitrite (NEGATIVE) Urine Bilirubin (NEGATIVE) Urine Urobilinogen (0.2-1.0) E.U./dL Ur Leukocyte Esterase (NEGATIVE) Urine RBC (0-5) /HPF Urine WBC (0-5) /HPF Ur Epithelial Cells /LPF Amorphous Sediment (0/HPF) /HPF Urine Bacteria (NONE TO FEW) /HPF Urine Mucus (NEGATIVE) /LPF 04/05/21 Range/Units 13:00 WBC (5.00-10.00) 10^3/uL RBC (4.50-6.00) 10^6/uL Hgb (13.0-17.0) g/dL Hct (40.0-52.0) % MCV (82.0-92.0) fL MCH (27.0-31.0) pg MCHC (32.0-36.0) g/dL RDW (11.5-14.5) % Plt Count (150-400) 10^3/uL MPV (7.4-10.4) fL Immature Gran % (Auto) (0.0-5.0) % Neut % (Auto) (50.0-70.0) % Lymph % (Auto) (20.0-40.0) % Cassia % (Auto) (2.0-8.0) % Eos % (Auto) (1.0-3.0) % Baso % (Auto) (0.0-1.0) % Neut # (Auto) (2.50-7.00) 10^3/uL Lymph # (Auto) (1.00-4.00) 10^3/uL Cassia # (Auto) (0.10-0.80) 10^3/uL Eos # (Auto) (0.10-0.30) 10^3/uL Baso # (Auto) (0.00-0.10) 10^3/uL Immature Gran # (Auto) (0.00-0.50) 10^3/uL Sodium (136-145) mmol/L Potassium (3.5-5.1) mmol/L Chloride (98-107) mmol/L Carbon Dioxide (21.0-32.0) mmol/L Anion Gap (5-15) mmol/L BUN (7-18) mg/dL Creatinine (0.51-1.17) mg/dL Est Cr Clr Drug Dosing mL/min Estimated GFR (MDRD) mL/min Glucose (70-140) mg/dL Lactic Acid (0.4-2.0) mmol/L Calcium (8.7-10.3) mg/dL Total Bilirubin (0.2-1.0) mg/dL AST (15-37) U/L ALT (14-63) U/L Alkaline Phosphatase (46-116) U/L Total Protein (6.4-8.2) g/dL Albumin (3.40-5.00) g/dL Lipase (73-393) U/L Specimen Type Urinvoid Urine Color Yellow (YELLOW) Urine Appearance Slightly cloudy H (CLEAR) Urine pH 5.5 (5.0-9.0) Ur Specific [place] 1.025 (1.005-1.030) Urine Protein 30 H (NEGATIVE) mg/dL Urine Glucose (UA) Negative (NEGATIVE) mg/dL Urine Ketones 15 H (NEGATIVE) mg/dL Urine Occult Blood Negative (NEGATIVE) Urine Nitrite Negative (NEGATIVE) Urine Bilirubin Small H (NEGATIVE) Urine Urobilinogen 1.0 (0.2-1.0) E.U./dL Ur Leukocyte Esterase Negative (NEGATIVE) Urine RBC 0-5 (0-5) /HPF Urine WBC 0-5 (0-5) /HPF Ur Epithelial Cells Few /LPF Amorphous Sediment Few (0/HPF) /HPF Urine Bacteria Few (NONE TO FEW) /HPF Urine Mucus Many H (NEGATIVE) /LPF Meds: Medications Generic Name Dose Route Start Last Admin Trade Name Freq PRN Reason Stop Dose Admin Sodium Chloride 10 ml 04/05/21 11:38 Sodium Chloride 0.9% 10 Ml Syringe FLUSH Q8HR PRN keep vein open Discontinued Medications Generic Name Dose Route Start Last Admin Trade Name Freq PRN Reason Stop Dose Admin Sodium Chloride 1,000 mls @ 999 mls/hr 04/05/21 11:38 04/05/21 11:35 Normal Saline IV 04/05/21 12:38 999 mls/hr .BOLUS ONE Administration Ketorolac Tromethamine Confirm 04/05/21 11:57 04/05/21 12:04 Ketorolac 30 Mg/Ml Sdv Administered 04/05/21 11:58 Not Given Dose 30 mg .ROUTE .STK-MED ONE Ketorolac Tromethamine 30 mg 04/05/21 12:04 04/05/21 12:05 Ketorolac 30 Mg/Ml Sdv IVPUSH 04/05/21 12:05 30 mg ONETIME ONE Administration Loperamide HCl 4 mg 04/05/21 13:07 04/05/21 13:12 Loperamide 2 Mg Cap PO 04/05/21 13:08 4 mg ONETIME ONE Administration Ondansetron HCl 4 mg 04/05/21 11:38 04/05/21 12:03 Ondansetron 4 Mg/2 Ml Sdv IVPUSH 04/05/21 11:39 4 mg ONETIME ONE Administration - Radiology Interpretation Free Text/Narrative:: CXR- BILATERAL INTERSTITIAL PNEUMONIA NO CHANGE FROM PREVIOUS. - Re-Assessments/Exams Free Text/Narrative Re-Assessment/Exam: 04/05/21 13:47 PT REPORTS HE FEELS MUCH BETTER AFTER IVF HYDRATION. PT HAD 1 LOOSE STOOL WHILE IN ER. PT WITHOUT NAUSEA/VOMITING. SAO2-96% RA, P-88; BP-112/67. Departure - Departure Time of Disposition: 13:52 Disposition: Home, Self-Care 01 Condition: Fair Clinical Impression: Diarrhea due to COVID-19, Viral syndrome, Pneumonia due to COVID-19 virus - Discharge Information Prescriptions: traMADol [Ultram] 50 mg PO Q6H PRN #10 tab PRN Reason: Pain Instructions: Dehydration, Adult, [id number], Prone Position Therapy, COVID- 19 Frequently Asked Questions Referrals: Sujey Obando, [employer] ATTEND[employer] [Primary Care Provider] - Forms: ED Department Discharge Additional Instructions: 1. DISCHARGE HOME 2. ULTRAM 50MG EVERY 6 HOURS NEEDED FOR BODY ACHES 3. MOTRIN 600MG EVERY 6 HOURS X 5 DAYS 4. IMODIUM 2MG TABLET WITH EACH LOOSE STOOL UP TO 6 TABLETS 5. RETURN TO ER IF WORSENING SYMPTOMS 6. FOLLOW UP IN CLINIC NEXT 72 HOURS FOR RECHECK OR SOONER IF NO IMPROVEMENT IN SYMPTOMS Sepsis Event Note (ED) - Focused Exam Vital Signs: Vital Signs Temp Pulse Resp BP Pulse Ox 04/05/21 13:15 86 26 H 112/67 95 04/05/21 13:04 97.2 F 85 22 H 98/63 94 L 04/05/21 12:00 88 24 H 109/69 94 L 04/05/21 11:35 97.3 F 93 20 108/83 95 - My Orders Last 24 Hours: My Active Orders 04/05/21 11:38 Peripheral IV Care [RC] . DIRECTED Sodium Chloride 0.9% [Saline Flush] 10 ml FLUSH Q8HR PRN Peripheral IV Insertion Adult [OM.PC] Routine - Assessment/Plan Last 24 Hours: My Active Orders 04/05/21 11:38 Peripheral IV Care [RC] . DIRECTED Sodium Chloride 0.9% [Saline Flush] 10 ml FLUSH Q8HR PRN Peripheral IV Insertion Adult [OM.PC] Routine Assessment:: 1. NAUSEA/VIRAL DIARRHEA 2. COVID PNEUMONIA-IMPROVING 3. VIRAL SYNDROME Plan: 1. DISCHARGE HOME 2. ULTRAM 50MG EVERY 6 HOURS NEEDED FOR BODY ACHES 3. MOTRIN 600MG EVERY 6 HOURS X 5 DAYS 4. IMODIUM 2MG TABLET WITH EACH LOOSE STOOL UP TO 6 TABLETS 5. RETURN TO ER IF WORSENING SYMPTOMS 6. FOLLOW UP IN CLINIC NEXT 72 HOURS FOR RECHECK OR SOONER IF NO IMPROVEMENT IN SYMPTOMS
[2021-04-05] MEDS ORDERED: Ketorolac 30 MG/ML SDV ONE (11:57)
[2021-04-05] MEDS ORDERED: Ketorolac 30 MG/ML SDV IVPUSH ONE (12:04)
[2021-04-05 12:14] LABS: ANION GAP 14.4 mmol/L (5-15); CHLORIDE,CL 102 mmol/L (98-107); SODIUM,NA 138 mmol/L (136-145)
--- NOTE | 2021-04-05 12:31 | CR ---
[id number] RAD/RAD Chest PA or AP 1V EXAM: FRONTAL CHEST INDICATION: COVID. COMPARISON: CT of March 30, 2021. DISCUSSION: There are moderate patchy bilateral infiltrates consistent with the clinical history of COVID pneumonia. These are similar to the prior study when allowances are made for difference in technique. Low lung volumes. No effusions. Mild apparent cardiomegaly likely relating to magnification from portable technique. IMPRESSION: 1. Moderate patchy bilateral infiltrates without definite interval change Av Juarez MD 04/05/21 [id number] Thank you for allowing us to participate in the care of your patient.
[2021-04-05] MEDS ORDERED: Loperamide 2 MG Cap PO ONE (13:07)
== END 2021-04-05 16:05 | disposition home or self-care (01) ==
LOC: KA.ED 11:15
DX: U07.1 COVID-19 (principal); J12.82 Pneumonia due to coronavirus disease 2019; R19.7 Diarrhea, unspecified; K92.1 Melena
CPT/HCPCS: 36415; 71045; 80053; 81001; 83605; 83690; 85025; 96374; 96375; 99284; 99285-25; A9270-GY; J1885; J2405; J7030